=== PATIENT | female | born 1955 | race Caucasian/White ===

== ENCOUNTER 2017-03-20 15:31 | Emergency (ER) | payer OTHER | END 2017-03-20 15:45 | disposition home or self-care (01) | LOC: ER 15:31 | DX: M25.561 Pain in right knee (principal); M25.562 Pain in left knee; I10 Essential (primary) hypertension; E11.9 Type 2 diabetes mellitus without complications; Z86.73 Personal history of transient ischemic attack (TIA), and cerebral infarction without residual deficits | CPT/HCPCS: 73560-50; 96372; 99284; A9270-GY; J1040 ==